=== PATIENT | female | born 1990 | race Caucasian/White ===

== ENCOUNTER 2018-09-05 17:12 | Emergency (ER) | payer SELFPAY ==
[~2018-09-05] VITALS: Ht 160 cm; Wt 65.0 kg
[~2018-09-05 17:12] MED LIST: ADVIL
[2018-09-05 21:24] VITALS: BP 141/61
== END 2018-09-05 22:00 | disposition left against medical advice (07) ==
LOC: ER 17:12
DX: R07.89 Other chest pain (principal); R10.13 Epigastric pain; K59.00 Constipation, unspecified; J06.9 Acute upper respiratory infection, unspecified; Z87.440 Personal history of urinary (tract) infections
CPT/HCPCS: 93005; 99283